=== PATIENT | female | born 1990 | race Caucasian/White ===

== ENCOUNTER 2022-08-25 02:52 | Inpatient (IN) | payer BC ==
[2022-08-25] MEDS ORDERED: Misoprostol 200 MCG Tab PO PRN (03:53)
[2022-08-25] MEDS ORDERED: Lidocaine 1% 50 ML MDV INJECT PRN (03:53)
[2022-08-25] MEDS ORDERED: Sodium Chloride 0.9% 20 ML SDV IV PRN (03:53)
[2022-08-25] MEDS ORDERED: Carboprost Tromethamine 250 MCG/1 ML Amp IM PRN (03:53)
[2022-08-25] MEDS ORDERED: Tranexamic Acid 1,000 MG in Sodium Chloride 0.9% 100 ML IV PRN (03:53)
[2022-08-25] MEDS ORDERED: Sodium Chloride 0.9% 10 ML Syringe FLUSH PRN (03:53)
[2022-08-25] MEDS ORDERED: Methylergonovine 0.2 MG/1 ML Amp IM PRN (03:53)
[2022-08-25] MEDS ORDERED: Butorphanol 1 MG/ML SDV IVPUSH PRN (03:53)
[2022-08-25] MEDS ORDERED: Sodium Chloride 0.9% 2.5 ML Syringe FLUSH PRN (03:53)
[2022-08-25] MEDS ORDERED: Water For Irrigation,Sterile 1,000 ML Container IRR PRN (03:53)
[2022-08-25] MEDS ORDERED: Ondansetron 4 MG/2 ML SDV IVPUSH PRN (03:53)
[2022-08-25] MEDS ORDERED: Oxytocin/0.9 % Sodium Chloride 30 UNIT/500 ML BAG IV SCH (04:00)
[2022-08-25] MEDS: Lactated Ringers 1,000 ML IV SCH ×3 (04:00→06:10)
[2022-08-25] MEDS ORDERED: Ropivacaine/PF 400 MG/200 ML PCA ONE (05:09)
[2022-08-25] MEDS ORDERED: Bupivacaine 0.5% 10 ML SDV ONE (05:09)
[2022-08-25] MEDS ORDERED: Phenylephrine HCl In 0.9% NaCl 1 MG/10 ML Vial IVPUSH PRN (05:41)
[2022-08-25] MEDS ORDERED: ePHEDrine 50 MG/ML SDV IVPUSH PRN ×2 (05:41)
[2022-08-25] MEDS ORDERED: Ropivacaine HCl/PF 400 MG in Premix Bag 1 BAG EPIDUR SCH (05:45)
[2022-08-25] MEDS: Phenylephrine HCl In 0.9% NaCl 1 MG/10 ML Vial IVPUSH SCH ×2 (06:24→06:28)
[2022-08-25] MEDS: Calcium Carbonate 500 MG Tab.Chew PO PRN ×2 (07:37→09:56)
[2022-08-25] MEDS ORDERED: Docusate Sodium 100 MG Cap PO PRN (13:14)
[2022-08-25] MEDS ORDERED: Ibuprofen 400 MG Tab PO PRN (13:14)
[2022-08-25] MEDS ORDERED: Lanolin 100% Cream 7 GM Tube TOP PRN (13:14)
[2022-08-25] MEDS ORDERED: Benzocaine/Menthol 20%-0.5% Spray 78 GM Cannister TOP PRN (13:14)
[2022-08-25] MEDS ORDERED: oxyCODONE 5 MG Tab PO PRN (13:14)
[2022-08-25] MEDS ORDERED: Witch Hazel Medicated Pads 40/Jar TOP PRN (13:14)
[2022-08-25] MEDS ORDERED: Bisacodyl 10 MG Supp RECTAL PRN (13:14)
[2022-08-25] MEDS ORDERED: Acetaminophen 500 MG Tab PO PRN ×2 (13:14)
[2022-08-25] MEDS: Ibuprofen 800 MG Tab PO PRN (16:20)
[2022-08-26] MEDS: Ibuprofen 800 MG Tab PO PRN (04:32)
== END 2022-08-26 16:10 | disposition home or self-care (01) | DRG 560 ==
LOC: MW.OB 02:52 → MW.OBCHECK 02:52 → MW.OB 03:53 → OBSVTOIN 12:49 → MW.OB 21:00
PROVIDERS: ADMIT Obstetrics & Gynecology; ATTEND Obstetrics & Gynecology
PROC: 10E0XZZ Delivery of Products of Conception, External Approach (ICD-10-PCS; principal; 2022-08-25)
PROC: 0UQMXZZ Repair Vulva, External Approach (ICD-10-PCS; 2022-08-25)
PROC: 3E0R3BZ Introduction of Anesthetic Agent into Spinal Canal, Percutaneous Approach (ICD-10-PCS; 2022-08-25)
PROC: 00HU33Z Insertion of Infusion Device into Spinal Canal, Percutaneous Approach (ICD-10-PCS; 2022-08-25)
PROC: 3E0234Z Introduction of Serum, Toxoid and Vaccine into Muscle, Percutaneous Approach (ICD-10-PCS; 2022-08-26)
DX: O48.0 Post-term pregnancy (principal); Z37.0 Single live birth; O70.0 First degree perineal laceration during delivery; Z3A.40 40 weeks gestation of pregnancy; Z20.822 Contact with and (suspected) exposure to COVID-19; O26.893 Other specified pregnancy related conditions, third trimester; Z67.21 Type B blood, Rh negative
CPT/HCPCS: 01967; 36415; 51702; 59025; 59409; 82803; 84112; 85014; 85018; 85027; 85460; 86592; 86850; 86900; 86901; A9270-GY; J0595; J2590; J2790; J2795; J3490; J7120; U0002

== ENCOUNTER 2024-08-03 00:13 | Inpatient (IN) | payer BC ==
[2024-08-03] MEDS ORDERED: Tranexamic Acid in NACL,ISO-OS 1,000 MG in Premix Bag 1 BAG IV PRN (07:26)
[2024-08-03] MEDS ORDERED: Methylergonovine 0.2 MG/1 ML Amp IM PRN (07:26)
[2024-08-03] MEDS ORDERED: Sodium Chloride 0.9% 10 ML Syringe FLUSH PRN (07:26)
[2024-08-03] MEDS ORDERED: Butorphanol 2 MG/ML SDV IVPUSH PRN (07:26)
[2024-08-03] MEDS ORDERED: Lidocaine 1% 50 ML MDV INJECT PRN (07:26)
[2024-08-03] MEDS ORDERED: Terbutaline 1 MG/ML SDV SUBCUT PRN (07:26)
[2024-08-03] MEDS ORDERED: Misoprostol 25 MCG (1/4 of 100 MCG) Tab VAG PRN (07:26)
[2024-08-03] MEDS ORDERED: Sodium Chloride 0.9% 20 ML SDV IV PRN (07:26)
[2024-08-03] MEDS ORDERED: Misoprostol 200 MCG Tab PO PRN (07:26)
[2024-08-03] MEDS ORDERED: Sodium Chloride 0.9% 2.5 ML Syringe FLUSH PRN (07:26)
[2024-08-03] MEDS ORDERED: Carboprost Tromethamine 250 MCG/1 mL Vial IM PRN (07:26)
[2024-08-03] MEDS: Misoprostol 25 MCG (1/4 of 100 MCG) Tab VAG PRN (08:43)
[2024-08-03 09:38] LABS: HEMATOCRIT 35.6 % (37.0-47.0); MEAN CORPUSCULAR HEMOGLOBIN 31.4 pg (28.0-32.0); MEAN CORPUSCULAR HGB CONC 33.7 g/dL (32.0-36.0); MEAN CORPUSCULAR VOLUME 93.2 fL (83.0-99.0); MEAN PLATELET VOLUME 11.9 fL (9.4-12.3); PLATELET COUNT,PLT 160 K/uL (150-400); RED BLOOD CELL COUNT 3.82 M/uL (4.10-5.30); WHITE BLOOD CELL COUNT,WBC 7.25 K/uL (3.9-11.3)
[2024-08-03] MEDS: Lactated Ringers 1,000 ML IV SCH (14:46)
[2024-08-03] MEDS ORDERED: Phenylephrine HCl In 0.9% NaCl 1 MG/10 ML Syringe ONE (15:00)
[2024-08-03] MEDS ORDERED: Ropivacaine HCl/PF 200 ML ONE (15:00)
[2024-08-03] MEDS ORDERED: Bupivacaine 0.5% 10 ML SDV ONE (15:00)
[2024-08-03] MEDS: Ropivacaine HCl/PF 400 MG in Premix Bag 1 BAG EPIDUR SCH (15:19)
[2024-08-03] MEDS ORDERED: ePHEDrine 50 MG/ML SDV IM PRN (15:23)
[2024-08-03] MEDS ORDERED: Bupivacaine 0.5% 10 ML SDV INJECT ONE (15:23)
[2024-08-03] MEDS ORDERED: ePHEDrine 50 MG/ML SDV IVPUSH PRN (15:23)
[2024-08-03] MEDS ORDERED: dexmedeTOMIDine HCl 200 MCG/2 ML SDV EPIDUR SCH (15:30)
[2024-08-03] MEDS: Oxytocin/0.9 % Sodium Chloride 30 UNIT/500 ML BAG IV SCH (18:03)
[2024-08-03] MEDS: Phenylephrine HCl In 0.9% NaCl 1 MG/10 ML Syringe IVPUSH PRN (19:15)
[2024-08-03] MEDS: Calcium Carbonate 500 MG Tab.Chew PO ONE (19:49)
[2024-08-03] MEDS: Ondansetron 4 MG/2 ML SDV ONE (22:15)
[2024-08-03] MEDS ORDERED: Ondansetron 4 MG/2 ML SDV IVPUSH PRN (22:19)
[2024-08-03] MEDS ORDERED: Ondansetron 4 MG/2 ML SDV ONE (22:20)
[2024-08-04] MEDS: Water For Irrigation,Sterile 1,000 ML Container IRR PRN
[2024-08-04] MEDS: Oxytocin/0.9 % Sodium Chloride 30 UNIT/500 ML BAG IV SCH (00:15)
[2024-08-04] MEDS ORDERED: Benzocaine/Menthol 20%-0.5% Spray 78 GM Cannister TOP PRN (00:36)
[2024-08-04] MEDS ORDERED: Docusate Sodium 100 MG Cap PO PRN (00:36)
[2024-08-04] MEDS ORDERED: Methylergonovine 0.2 MG/1 ML Amp IM PRN (00:36)
[2024-08-04] MEDS ORDERED: Lanolin 100% Cream 7 GM Tube TOP PRN (00:36)
[2024-08-04] MEDS ORDERED: Acetaminophen 500 MG Tab PO PRN (00:36)
[2024-08-04] MEDS ORDERED: Witch Hazel Medicated Pads 40/Jar TOP PRN (00:36)
[2024-08-04 00:43] LABS: PH,UMBILICAL ARTERIAL 7.202 (7.18-7.38); PH,UMBILICAL VENOUS 7.246 (7.25-7.45)
[2024-08-04] MEDS: Ibuprofen 800 MG Tab PO PRN (03:55)
[2024-08-05 05:36] LABS: HEMATOCRIT 35.1 % (37.0-47.0); HEMOGLOBIN 11.5 g/dL (12.0-16.0)
[2024-08-05] MEDS: Prenatal Multivitamin with Calcium/Folic Acid/Iron Tab PO SCH (09:57)
[2024-08-05] MEDS: predniSONE 20 MG Tab PO SCH (09:58)
[2024-08-06] MEDS ORDERED: predniSONE 20 MG Tab PO SCH (08:00)
== END 2024-08-05 12:18 | disposition home or self-care (01) | DRG 560 ==
LOC: MW.OB 00:13 → OBSVTOIN 08-04 00:13 → MW.OB 08-04 18:25
PROVIDERS: ADMIT Obstetrics & Gynecology; ATTEND Obstetrics & Gynecology
PROC: 10D07Z6 Extraction of Products of Conception, Vacuum, Via Natural or Artificial Opening (ICD-10-PCS; principal; 2024-08-04)
PROC: 10907ZC Drainage of Amniotic Fluid, Therapeutic from Products of Conception, Via Natural or Artificial Opening (ICD-10-PCS; 2024-08-04)
PROC: 3E033VJ Introduction of Other Hormone into Peripheral Vein, Percutaneous Approach (ICD-10-PCS; 2024-08-04)
PROC: 3E0P7VZ Introduction of Hormone into Female Reproductive, Via Natural or Artificial Opening (ICD-10-PCS; 2024-08-04)
PROC: 3E0R3BZ Introduction of Anesthetic Agent into Spinal Canal, Percutaneous Approach (ICD-10-PCS; 2024-08-04)
PROC: 00HU33Z Insertion of Infusion Device into Spinal Canal, Percutaneous Approach (ICD-10-PCS; 2024-08-04)
PROC: 3E0334Z Introduction of Serum, Toxoid and Vaccine into Peripheral Vein, Percutaneous Approach (ICD-10-PCS; 2024-08-04)
DX: O48.0 Post-term pregnancy (principal); Z37.0 Single live birth; O66.5 Attempted application of vacuum extractor and forceps; O26.893 Other specified pregnancy related conditions, third trimester; Z67.21 Type B blood, Rh negative; O99.892 Other specified diseases and conditions complicating childbirth; I86.3 Vulval varices; Z3A.41 41 weeks gestation of pregnancy; O76 Abnormality in fetal heart rate and rhythm complicating labor and delivery; O75.81 Maternal exhaustion complicating labor and delivery
CPT/HCPCS: 01967; 36415; 36430; 51702; 59025; 82803; 85014; 85018; 85027; 85460; 86592; 86850; 86900; 86901; A9270-GY; J0665; J2371; J2405; J2590; J2791; J2795; J3490; J7120